=== PATIENT | female | born 1965 | race Caucasian/White ===

== ENCOUNTER 2019-10-08 20:46 | Emergency (ER) | payer MEDICARE, OTHER ==
[~2019-10-08] VITALS: Ht 162.6 cm; Wt 54.5 kg
[~2019-10-08 20:46] MED LIST: ESCI20TA87 PO; ESCI5SOL2 PO; FOLI-130 PO
[2019-10-09] MEDS ORDERED: ChlordiazePOXIDE HCL 25 MG CAPSULE PO ONE (01:00)
[2019-10-09 01:20] VITALS: BP 136/87
== END 2019-10-09 00:56 | disposition other institution (70) ==
LOC: EMS 20:48
DX: F32.9 Major depressive disorder, single episode, unspecified (principal); R45.851 Suicidal ideations; F10.20 Alcohol dependence, uncomplicated; R05 Cough; I10 Essential (primary) hypertension; F17.210 Nicotine dependence, cigarettes, uncomplicated
CPT/HCPCS: 71045-TC